=== PATIENT | female | born 1940 | race Caucasian/White ===

== ENCOUNTER 2023-09-05 15:57 | Inpatient (IN) ==
[2023-09-05 16:46] LABS: Basophils # (Auto) 0.02 K/mcL (0.00-0.30); Basophils % (Auto) 0.5 % (0.0-2.0); Eosinophils # (Auto) 0.04 K/mcL (0.00-0.70); Hematocrit 32.5 % (34.1-44.9); Hemoglobin 9.3 g/dL (11.2-15.7); Lymphocytes # (Auto) 0.69 K/mcL (1.50-4.80); Lymphocytes % (Auto) 16.9 % (15.5-49.0); Mean Cell Volume 95.3 fL (80.0-100.0); Mean Corpuscular HGB Conc 28.6 g/dL (31.0-36.0); Mean Platelet Volume 12.2 fL (8.8-12.5); Monocytes # (Auto) 0.55 K/mcL (0.10-0.90); Monocytes % (Auto) 13.4 % (1.0-12.0); Platelet Count 177 K/mcL (140-440); RBC 3.41 M/mcL (3.59-5.38); Red Cell Distribution Width 16.9 % (11.5-14.5); WBC 4.1 K/mcL (4.5-11.0)
[2023-09-05] MEDS: IPRATROPIUM/ALBUTEROL 3 ML AMPUL.NEB NEB ONE (17:01)
[2023-09-05 17:03] LABS: ALT/SGPT 7 U/L (<40); AST/SGOT 22 U/L (<32); Albumin/Globulin Ratio 1.5 (1.0-2.3); Alkaline Phosphatase 131 U/L (39-117); Bilirubin,Total 0.4 mg/dL (0.1-1.0); Blood Urea Nitrogen 47 mg/dL (8-23); Calcium 8.8 mg/dL (8.6-10.4); Carbon Dioxide 24 mmol/L (22-30); Chloride 105 mmol/L (96-108); Globulin 2.7 gm/dL (2.2-3.7); Glomerular Filtration Rate 35; Glucose 124 mg/dL (70-105)
[2023-09-05] MEDS: FUROSEMIDE 40 MG/4 ML VIAL IV ONE (17:35)
[2023-09-06] MEDS ORDERED: LACTULOSE 20 GM/30 ML ORAL.SOL PO PRN (05:25)
[2023-09-06] MEDS ORDERED: SENNOSIDES 1 TABLET PO PRN (05:25)
[2023-09-06 06:17] LABS: Basophils # (Auto) 0.04 K/mcL (0.00-0.30); Eosinophils # (Auto) 0.03 K/mcL (0.00-0.70); Eosinophils % (Auto) 0.8 % (0.0-7.0); Hemoglobin 8.3 g/dL (11.2-15.7); Lymphocytes # (Auto) 0.66 K/mcL (1.50-4.80); Lymphocytes % (Auto) 17.3 % (15.5-49.0); Mean Corpuscular HGB Conc 27.7 g/dL (31.0-36.0); Mean Platelet Volume 12.8 fL (8.8-12.5); Monocytes % (Auto) 13.1 % (1.0-12.0); Neutrophils % (Auto) 67.3 % (38.0-78.0); Platelet Count 144 K/mcL (140-440); Red Cell Distribution Width 17.3 % (11.5-14.5); WBC 3.8 K/mcL (4.5-11.0)
[2023-09-06 06:46] LABS: Blood Urea Nitrogen 46 mg/dL (8-23); Calcium 8.6 mg/dL (8.6-10.4); Carbon Dioxide 21 mmol/L (22-30); Chloride 105 mmol/L (96-108); Glomerular Filtration Rate 38; Glucose 87 mg/dL (70-105)
[2023-09-06] MEDS: 0.9 % SODIUM CHLORIDE 10 ML SYRINGE IV SCH (07:34)
[2023-09-06] MEDS: FUROSEMIDE 40 MG/4 ML VIAL IV SCH (07:34)
[2023-09-06] MEDS ORDERED: ALBUTEROL SULFATE 2.5 MG/3 ML NEBULIZER NEB PRN (08:39)
[2023-09-06] MEDS: DOCUSATE SODIUM 100 MG CAPSULE PO SCH (08:48)
[2023-09-06] MEDS: IPRATROPIUM/ALBUTEROL 3 ML AMPUL.NEB NEB SCH (13:30)
[2023-09-06 14:17] LABS: Hematocrit 31.4 % (34.1-44.9); Hemoglobin 8.8 g/dL (11.2-15.7)
[2023-09-06] MEDS: METOPROLOL TARTRATE 25 MG TABLET PO SCH (20:21)
[2023-09-06] MEDS: APIXABAN 5 MG TABLET PO SCH (20:21)
[2023-09-07 05:53] LABS: Basophils # (Auto) 0.02 K/mcL (0.00-0.30); Basophils % (Auto) 0.5 % (0.0-2.0); Eosinophils # (Auto) 0.07 K/mcL (0.00-0.70); Eosinophils % (Auto) 1.7 % (0.0-7.0); Hematocrit 30.4 % (34.1-44.9); Hemoglobin 8.5 g/dL (11.2-15.7); Lymphocytes # (Auto) 0.62 K/mcL (1.50-4.80); Lymphocytes % (Auto) 15.3 % (15.5-49.0); Mean Cell Volume 98.4 fL (80.0-100.0); Mean Platelet Volume 12.8 fL (8.8-12.5); Monocytes # (Auto) 0.44 K/mcL (0.10-0.90); Monocytes % (Auto) 10.9 % (1.0-12.0); Neutrophils % (Auto) 71.4 % (38.0-78.0); Platelet Count 157 K/mcL (140-440); RBC 3.09 M/mcL (3.59-5.38); Red Cell Distribution Width 16.9 % (11.5-14.5); WBC 4.1 K/mcL (4.5-11.0)
[2023-09-07 06:22] LABS: Blood Urea Nitrogen 43 mg/dL (8-23); Calcium 8.7 mg/dL (8.6-10.4); Carbon Dioxide 26 mmol/L (22-30); Chloride 104 mmol/L (96-108); Glomerular Filtration Rate 38; Glucose 104 mg/dL (70-105)
[2023-09-07 07:46] LABS: Iron 28 ug/dL (37-145); TIBC Calculation 326 ug/dl (228-428); Transferrin % Saturation 9 % (15-50)
[2023-09-07] MEDS: IPRATROPIUM/ALBUTEROL 3 ML AMPUL.NEB NEB ONE (09:30)
[2023-09-07] MEDS: OMEPRAZOLE 20 MG CAPSULE PO SCH (10:23)
[2023-09-07] MEDS: METOPROLOL TARTRATE 25 MG TABLET PO SCH (10:24)
[2023-09-07] MEDS: LACTOBACILLUS 1 CAPSULE PO SCH (10:24)
[2023-09-07] MEDS: methylPREDNISolone SOD SUCC 125 MG/2 ML VIAL IV SCH (10:33)
[2023-09-07] MEDS: predniSONE 20 MG TABLET PO SCH (10:38)
[2023-09-07] MEDS: IRON SUCROSE COMPLEX 100 MG/5 ML VIAL IV SCH (15:48)
[2023-09-07] MEDS: ACETAMINOPHEN 325 MG TABLET PO PRN (20:38)
[2023-09-08 06:16] LABS: Basophils # (Auto) 0.01 K/mcL (0.00-0.30); Basophils % (Auto) 0.3 % (0.0-2.0); Eosinophils # (Auto) 0 K/mcL (0.00-0.70); Eosinophils % (Auto) 0 % (0.0-7.0); Hematocrit 29.4 % (34.1-44.9); Hemoglobin 8.4 g/dL (11.2-15.7); Lymphocytes % (Auto) 8.6 % (15.5-49.0); Mean Cell Volume 96.1 fL (80.0-100.0); Mean Corpuscular HGB Conc 28.6 g/dL (31.0-36.0); Mean Platelet Volume 12.9 fL (8.8-12.5); Monocytes # (Auto) 0.18 K/mcL (0.10-0.90); Monocytes % (Auto) 5.2 % (1.0-12.0); Neutrophils % (Auto) 85.6 % (38.0-78.0); Platelet Count 162 K/mcL (140-440); RBC 3.06 M/mcL (3.59-5.38); Red Cell Distribution Width 16.7 % (11.5-14.5); WBC 3.5 K/mcL (4.5-11.0)
[2023-09-08 06:27] LABS: Blood Urea Nitrogen 46 mg/dL (8-23); Calcium 8.6 mg/dL (8.6-10.4); Carbon Dioxide 30 mmol/L (22-30); Chloride 102 mmol/L (96-108); Glomerular Filtration Rate 32; Glucose 147 mg/dL (70-105)
[2023-09-08] MEDS: FUROSEMIDE 250 MG in 0.9 % SODIUM CHLORIDE 225 ML IV SCH (09:24)
[2023-09-08] MEDS ORDERED: oxyCODONE IR 5 MG TABLET PO PRN ×2 (11:17→15:02)
[2023-09-08 17:28] LABS: Blood Urea Nitrogen 46 mg/dL (8-23); Calcium 8.9 mg/dL (8.6-10.4); Carbon Dioxide 30 mmol/L (22-30); Chloride 100 mmol/L (96-108); Glomerular Filtration Rate 35; Glucose 142 mg/dL (70-105)
[2023-09-08] MEDS: oxyCODONE IR 5 MG TABLET PO SCH (20:23)
[2023-09-08] MEDS: FUROSEMIDE 100 MG/10 ML VIAL IV ONE (22:36)
[2023-09-09 06:22] LABS: Basophils # (Auto) 0.01 K/mcL (0.00-0.30); Basophils % (Auto) 0.2 % (0.0-2.0); Eosinophils # (Auto) 0.04 K/mcL (0.00-0.70); Eosinophils % (Auto) 0.8 % (0.0-7.0); Hematocrit 32.8 % (34.1-44.9); Hemoglobin 9.4 g/dL (11.2-15.7); Lymphocytes # (Auto) 0.82 K/mcL (1.50-4.80); Lymphocytes % (Auto) 15.6 % (15.5-49.0); Mean Cell Volume 96.2 fL (80.0-100.0); Mean Corpuscular HGB Conc 28.7 g/dL (31.0-36.0); Mean Platelet Volume 12.6 fL (8.8-12.5); Monocytes # (Auto) 0.59 K/mcL (0.10-0.90); Monocytes % (Auto) 11.2 % (1.0-12.0); Platelet Count 172 K/mcL (140-440); RBC 3.41 M/mcL (3.59-5.38); Red Cell Distribution Width 16.6 % (11.5-14.5); WBC 5.3 K/mcL (4.5-11.0)
[2023-09-09 06:32] LABS: ALT/SGPT < 5 U/L (<40); AST/SGOT 19 U/L (<32); Albumin 3.5 gm/dL (3.2-5.2); Albumin/Globulin Ratio 1.2 (1.0-2.3); Alkaline Phosphatase 108 U/L (39-117); Bilirubin,Direct < 0.2 mg/dL (0-0.3); Bilirubin,Total 0.3 mg/dL (0.1-1.0); Blood Urea Nitrogen 47 mg/dL (8-23); Calcium 8.9 mg/dL (8.6-10.4); Carbon Dioxide 32 mmol/L (22-30); Chloride 99 mmol/L (96-108); Globulin 2.9 gm/dL (2.2-3.7); Glomerular Filtration Rate 38; Glucose 98 mg/dL (70-105); Lactate Dehydrogenase 165 U/L (135-225); Phosphorous 3.5 mg/dL (2.5-4.5); Triglycerides 59 mg/dL (<150); Uric Acid 9.9 mg/dL (2.5-8.0)
[2023-09-09] MEDS ORDERED: MAGNESIUM SULFATE 1 GM/100 ML BAG IV ONE (13:00)
[2023-09-09] MEDS: MAGNESIUM SULFATE 8.12 MEQ/2 ML VIAL IV ONE (13:14)
[2023-09-09] MEDS: MAGNESIUM SULFATE 2 GM/50 ML BAG IV ONE (14:25)
[2023-09-09 16:46] LABS: Blood Urea Nitrogen 46 mg/dL (8-23); Calcium 8.8 mg/dL (8.6-10.4); Carbon Dioxide 31 mmol/L (22-30); Chloride 98 mmol/L (96-108); Glomerular Filtration Rate 35; Glucose 140 mg/dL (70-105)
[2023-09-10 06:13] LABS: Basophils # (Auto) 0.02 K/mcL (0.00-0.30); Basophils % (Auto) 0.4 % (0.0-2.0); Eosinophils # (Auto) 0.08 K/mcL (0.00-0.70); Eosinophils % (Auto) 1.6 % (0.0-7.0); Hematocrit 31.1 % (34.1-44.9); Hemoglobin 8.8 g/dL (11.2-15.7); Lymphocytes % (Auto) 14.1 % (15.5-49.0); Mean Cell Volume 96.6 fL (80.0-100.0); Mean Corpuscular HGB Conc 28.3 g/dL (31.0-36.0); Mean Platelet Volume 12.8 fL (8.8-12.5); Monocytes # (Auto) 0.55 K/mcL (0.10-0.90); Monocytes % (Auto) 11.1 % (1.0-12.0); Neutrophils % (Auto) 72.4 % (38.0-78.0); Platelet Count 171 K/mcL (140-440); RBC 3.22 M/mcL (3.59-5.38); Red Cell Distribution Width 16.8 % (11.5-14.5)
[2023-09-10 06:33] LABS: ALT/SGPT 7 U/L (<40); AST/SGOT 21 U/L (<32); Albumin 3.5 gm/dL (3.2-5.2); Albumin/Globulin Ratio 1.3 (1.0-2.3); Alkaline Phosphatase 106 U/L (39-117); Bilirubin,Direct 0.2 mg/dL (<0.3); Bilirubin,Total 0.5 mg/dL (0.1-1.0); Blood Urea Nitrogen 44 mg/dL (8-23); Calcium 8.8 mg/dL (8.6-10.4); Carbon Dioxide 35 mmol/L (22-30); Chloride 97 mmol/L (96-108); Globulin 2.7 gm/dL (2.2-3.7); Glomerular Filtration Rate 46; Glucose 98 mg/dL (70-105); Lactate Dehydrogenase 160 U/L (135-225); Triglycerides 58 mg/dL (<150); Uric Acid 10.5 mg/dL (2.5-8.0)
[2023-09-10] MEDS: ONDANSETRON 4 MG/2 ML VIAL IV PRN (10:33)
[2023-09-10] MEDS: METOLAZONE 2.5 MG TABLET PO ONE (10:34)
[2023-09-10] MEDS: ALBUMIN HUMAN 12.5 GM/50 ML VIAL IV ONE (10:34)
[2023-09-10] MEDS: SODIUM CHLORIDE NASAL 1 SPRAY BOTTLE NAS PRN (10:35)
[2023-09-10] MEDS: predniSONE 20 MG TABLET PO SCH (10:35)
[2023-09-10] MEDS: BUDESONIDE 0.5 MG/2 ML AMPUL.NEB NEB SCH (10:36)
[2023-09-10] MEDS: traMADol 50 MG TABLET PO PRN (10:36)
[2023-09-10] MEDS: IPRATROPIUM/ALBUTEROL 3 ML AMPUL.NEB NEB PRN (10:36)
[2023-09-10] MEDS: LORATADINE 10 MG TABLET PO ONE (10:58)
[2023-09-10 11:31] LABS: Appearance,Urine Hazy (Clear); Bilirubin,Urine Negative (Negative); Color,Urine Red; Culture Indicated,Urine No; Glucose,Urine (UA) Negative (Negative); Ketones,Urine Negative (Negative); Leukocyte Esterase,Urine Negative /uL (Negative); Nitrate,Urine Negative (Negative); Protein,Urine 30 mg/dL (Negative); Specific Gravity,Urine 1.006 (1.000-1.035); Urine Blood >=1.0 mg/dL (Negative); Urine RBC > 182 /hpf (0-1); Urine Squamous Epithelial Cell 0 /hpf (0-4); Urine WBC 0 /hpf (0-4); Urobilinogen,Urine Negative
[2023-09-10] MEDS ORDERED: IOPAMIDOL 100 ML BOTTLE IV ONE (14:40)
[2023-09-10] MEDS ORDERED: POTASSIUM CHLORIDE 40 MEQ in DEXTROSE 5% IN WATER 500 ML IV PRN (16:33)
[2023-09-10] MEDS ORDERED: POTASSIUM CHLORIDE 20 MEQ TABLET PO PRN ×2 (16:34→16:36)
[2023-09-10] MEDS ORDERED: MAGNESIUM SULFATE 2 GM/50 ML BAG IV PRN (16:37)
[2023-09-10] MEDS: oxyCODONE IR 5 MG TABLET PO PRN (20:11)
[2023-09-10] MEDS: FUROSEMIDE 100 MG/10 ML VIAL IV ONE (21:53)
[2023-09-11 05:53] LABS: Hematocrit 33.6 % (34.1-44.9); Hemoglobin 9.2 g/dL (11.2-15.7)
[2023-09-11 06:23] LABS: ALT/SGPT 17 U/L (<40); AST/SGOT 30 U/L (<32); Albumin 3.9 gm/dL (3.2-5.2); Albumin/Globulin Ratio 1.3 (1.0-2.3); Alkaline Phosphatase 118 U/L (39-117); Bilirubin,Direct 0.3 mg/dL (<0.3); Bilirubin,Total 0.7 mg/dL (0.1-1.0); Blood Urea Nitrogen 45 mg/dL (8-23); Calcium 8.9 mg/dL (8.6-10.4); Carbon Dioxide 37 mmol/L (22-30); Chloride 93 mmol/L (96-108); Glomerular Filtration Rate 38; Glucose 147 mg/dL (70-105); Lactate Dehydrogenase 170 U/L (135-225); Phosphorous 4.4 mg/dL (2.5-4.5); Triglycerides 44 mg/dL (<150); Uric Acid 11.5 mg/dL (2.5-8.0)
[2023-09-11] MEDS: guaiFENesin 600 MG TAB.SR.12H PO SCH (09:34)
[2023-09-11] MEDS: acetaZOLAMIDE SOD 500 MG VIAL IV ONE (11:56)
[2023-09-11] MEDS ORDERED: PROMETHAZINE 50 MG/ML AMPUL IM PRN (13:20)
[2023-09-11] MEDS: PROCHLORPERAZINE 10 MG/2 ML VIAL IV PRN (13:37)
[2023-09-11] MEDS: LEVOFLOXACIN 750 MG/150 ML BAG IV SCH (14:57)
[2023-09-11] MEDS: PROMETHAZINE 25 MG/ML VIAL IV PRN (15:06)
[2023-09-11] MEDS: FUROSEMIDE 100 MG/10 ML VIAL IV ONE (17:38)
[2023-09-11] MEDS: ALBUMIN HUMAN 12.5 GM/50 ML VIAL IV ONE (18:00)
[2023-09-12] MEDS: METOPROLOL TARTRATE 5 MG/5 ML VIAL IV PRN (03:54)
[2023-09-12 06:14] LABS: ALT/SGPT 18 U/L (<40); AST/SGOT 33 U/L (<32); Albumin 3.7 gm/dL (3.2-5.2); Albumin/Globulin Ratio 1.3 (1.0-2.3); Alkaline Phosphatase 102 U/L (39-117); Bilirubin,Direct 0.3 mg/dL (<0.3); Bilirubin,Total 0.5 mg/dL (0.1-1.0); Blood Urea Nitrogen 56 mg/dL (8-23); Calcium 8.4 mg/dL (8.6-10.4); Carbon Dioxide 31 mmol/L (22-30); Chloride 94 mmol/L (96-108); Globulin 2.8 gm/dL (2.2-3.7); Glomerular Filtration Rate 26; Glucose 117 mg/dL (70-105); Lactate Dehydrogenase 261 U/L (135-225); Phosphorous 4.8 mg/dL (2.5-4.5); Triglycerides 57 mg/dL (<150); Uric Acid 11.6 mg/dL (2.5-8.0)
[2023-09-12] MEDS: predniSONE 20 MG TABLET PO SCH (08:29)
[2023-09-12] MEDS: 0.9 % SODIUM CHLORIDE 250 ML IV ONE (08:31)
[2023-09-12] MEDS: hydrOXYzine 10 MG TABLET PO ONE (11:17)
[2023-09-12] MEDS ORDERED: FUROSEMIDE 250 MG in 0.9 % SODIUM CHLORIDE 225 ML IV PRN (14:30)
[2023-09-12] MEDS: OLANZapine 5 MG TABLET PO ONE (15:32)
[2023-09-12] MEDS: APIXABAN 2.5 MG TABLET PO SCH (21:35)
[2023-09-13] MEDS: LACTATED RINGERS 250 ML IV ONE (03:20)
[2023-09-13] MEDS ORDERED: BENZOCAINE/MENTHOL 1 LOZENGE PO PRN (08:15)
[2023-09-13 08:41] LABS: ALT/SGPT 17 U/L (<40); AST/SGOT 23 U/L (<32); Albumin/Globulin Ratio 1.5 (1.0-2.3); Alkaline Phosphatase 100 U/L (39-117); Bilirubin,Direct 0.2 mg/dL (<0.3); Bilirubin,Total 0.5 mg/dL (0.1-1.0); Blood Urea Nitrogen 73 mg/dL (8-23); Calcium 8.6 mg/dL (8.6-10.4); Carbon Dioxide 35 mmol/L (22-30); Chloride 93 mmol/L (96-108); Globulin 2.6 gm/dL (2.2-3.7); Glomerular Filtration Rate 20; Glucose 101 mg/dL (70-105); Lactate Dehydrogenase 189 U/L (135-225); Phosphorous 4.7 mg/dL (2.5-4.5); Triglycerides 83 mg/dL (<150); Uric Acid 12.9 mg/dL (2.5-8.0)
[2023-09-13] MEDS: METOPROLOL TARTRATE 25 MG TABLET PO SCH (08:45)
[2023-09-13] MEDS: QUEtiapine 25 MG TABLET PO SCH (08:50)
[2023-09-13] MEDS: ALBUMIN HUMAN 12.5 GM/50 ML VIAL IV SCH (09:43)
[2023-09-13] MEDS: 0.9 % SODIUM CHLORIDE 500 ML IV ONE (11:00)
[2023-09-13 11:36] LABS: Appearance,Urine Clear (Clear); Bacteria,Urine Few /hpf (0); Bilirubin,Urine Small mg/dL (Negative); Color,Urine Yellow; Culture Indicated,Urine Yes; Glucose,Urine (UA) Negative (Negative); Ketones,Urine Negative (Negative); Leukocyte Esterase,Urine Trace /uL (Negative); Nitrate,Urine Negative (Negative); PH,Urine 5.5 (5.0-9.0); Protein,Urine 100 mg/dL (Negative); Urine Blood Large ery/mcL (Negative); Urine Hyaline Cast 3 /lph (0-2); Urine RBC > 182 /hpf (0-1); Urine Squamous Epithelial Cell 2 /hpf (0-4); Urine WBC 3 /hpf (0-4); Urobilinogen,Urine Normal
[2023-09-13] MEDS: IRON POLYSACCHARIDE COMPLEX 150 MG CAPSULE PO SCH (12:58)
[2023-09-13] MEDS: morphine 2 MG/ML VIAL IV PRN (13:40)
[2023-09-13] MEDS: LACTOPEROXI/GLUC OXID/POT THIO 1 EACH GEL..EA. TOPICAL PRN (18:14)
[2023-09-14] MEDS ORDERED: LORazepam 2 MG/ML VIAL IV PRN (01:31)
[2023-09-14] MEDS: OLANZapine 10 MG VIAL IM PRN (01:58)
[2023-09-14] MEDS: OLANZapine 10 MG VIAL ONE (02:28)
[2023-09-14] MEDS: predniSONE 20 MG TABLET PO SCH (08:42)
[2023-09-14] MEDS: NYSTATIN 500,000 UNITS/5 ML ORAL.SUSP SSW SCH (09:15)
[2023-09-14 10:42] LABS: ALT/SGPT 14 U/L (<40); AST/SGOT 23 U/L (<32); Albumin 3.6 gm/dL (3.2-5.2); Albumin/Globulin Ratio 1.5 (1.0-2.3); Alkaline Phosphatase 81 U/L (39-117); Anion Gap 11.2 (8.0-16.0); Bilirubin,Direct 0.2 mg/dL (<0.3); Bilirubin,Total 0.4 mg/dL (0.1-1.0); Blood Urea Nitrogen 79 mg/dL (8-23); Calcium 8.2 mg/dL (8.6-10.4); Carbon Dioxide 32 mmol/L (22-30); Chloride 96 mmol/L (96-108); Globulin 2.4 gm/dL (2.2-3.7); Glomerular Filtration Rate 22; Glucose 91 mg/dL (70-105); Lactate Dehydrogenase 209 U/L (135-225); Phosphorous 4.3 mg/dL (2.5-4.5); Triglycerides 80 mg/dL (<150); Uric Acid 13.1 mg/dL (2.5-8.0)
[2023-09-14] MEDS: OLANZapine 5 MG TABLET PO PRN (12:39)
[2023-09-15] MEDS: HALOPERIDOL LACTATE 5 MG/ML VIAL IV PRN (00:53)
[2023-09-15 06:19] LABS: Basophils # (Auto) 0.02 K/mcL (0.00-0.30); Basophils % (Auto) 0.2 % (0.0-2.0); Eosinophils # (Auto) 0.14 K/mcL (0.00-0.70); Eosinophils % (Auto) 1.5 % (0.0-7.0); Hematocrit 32.2 % (34.1-44.9); Lymphocytes # (Auto) 0.62 K/mcL (1.50-4.80); Lymphocytes % (Auto) 6.8 % (15.5-49.0); Mean Cell Volume 99.4 fL (80.0-100.0); Mean Platelet Volume 12.9 fL (8.8-12.5); Monocytes # (Auto) 0.97 K/mcL (0.10-0.90); Monocytes % (Auto) 10.6 % (1.0-12.0); Neutrophils % (Auto) 79.6 % (38.0-78.0); Platelet Count 172 K/mcL (140-440); RBC 3.24 M/mcL (3.59-5.38); Red Cell Distribution Width 17.4 % (11.5-14.5); WBC 9.1 K/mcL (4.5-11.0)
[2023-09-15 06:37] LABS: ALT/SGPT 13 U/L (<40); AST/SGOT 20 U/L (<32); Albumin 3.8 gm/dL (3.2-5.2); Albumin/Globulin Ratio 1.5 (1.0-2.3); Alkaline Phosphatase 83 U/L (39-117); Bilirubin,Total 0.5 mg/dL (0.1-1.0); Blood Urea Nitrogen 76 mg/dL (8-23); Calcium 8.6 mg/dL (8.6-10.4); Carbon Dioxide 32 mmol/L (22-30); Chloride 95 mmol/L (96-108); Globulin 2.6 gm/dL (2.2-3.7); Glomerular Filtration Rate 24; Glucose 90 mg/dL (70-105)
[2023-09-15] MEDS: FUROSEMIDE 20 MG/2 ML VIAL IV SCH (09:25)
[2023-09-15] MEDS: PANTOPRAZOLE 40 MG VIAL IV SCH (10:24)
[2023-09-16 07:08] LABS: ALT/SGPT 10 U/L (<40); AST/SGOT 25 U/L (<32); Albumin 3.6 gm/dL (3.2-5.2); Albumin/Globulin Ratio 1.6 (1.0-2.3); Alkaline Phosphatase 72 U/L (39-117); Bilirubin,Total 0.4 mg/dL (0.1-1.0); Blood Urea Nitrogen 70 mg/dL (8-23); Calcium 8.5 mg/dL (8.6-10.4); Carbon Dioxide 35 mmol/L (22-30); Chloride 98 mmol/L (96-108); Globulin 2.2 gm/dL (2.2-3.7); Glomerular Filtration Rate 30; Glucose 66 mg/dL (70-105)
[2023-09-16 07:33] LABS: Basophils # (Auto) 0.03 K/mcL (0.00-0.30); Basophils % (Auto) 0.4 % (0.0-2.0); Eosinophils # (Auto) 0.23 K/mcL (0.00-0.70); Eosinophils % (Auto) 3.1 % (0.0-7.0); Hematocrit 30.1 % (34.1-44.9); Hemoglobin 8.5 g/dL (11.2-15.7); Lymphocytes # (Auto) 0.58 K/mcL (1.50-4.80); Lymphocytes % (Auto) 7.9 % (15.5-49.0); Mean Cell Volume 96.2 fL (80.0-100.0); Mean Corpuscular HGB Conc 28.2 g/dL (31.0-36.0); Mean Platelet Volume 13.5 fL (8.8-12.5); Monocytes # (Auto) 0.81 K/mcL (0.10-0.90); Neutrophils % (Auto) 75.7 % (38.0-78.0); Platelet Count 144 K/mcL (140-440); RBC 3.13 M/mcL (3.59-5.38); Red Cell Distribution Width 18.2 % (11.5-14.5); WBC 7.3 K/mcL (4.5-11.0)
[2023-09-16] MEDS ORDERED: METOPROLOL TARTRATE 5 MG/5 ML VIAL IV PRN (10:04)
[2023-09-16] MEDS ORDERED: ONDANSETRON 4 MG ODT TABLET SL PRN (20:23)
[2023-09-16] MEDS: SCOPOLAMINE 1 PATCH PATCH TOPICAL SCH (20:53)
[2023-09-16] MEDS: morphine 4 MG/ML VIAL IV PRN (21:13)
[2023-09-16] MEDS: 0.9 % SODIUM CHLORIDE 10 ML SYRINGE IV SCH (21:18)
== END 2023-09-17 10:46 | disposition expired ==
LOC: ED 15:57 → ICU 09-06 02:35
PROVIDERS: ADMIT Internal Medicine; ATTEND Internal Medicine